=== PATIENT | female | born 1970 | race Caucasian/White ===

== ENCOUNTER 2017-12-04 22:20 | Emergency (ER) | payer MEDICAID, OTHER ==
--- NOTE | 2017-12-04 22:53 | EDPHY ---
H & P Stated Complaint: pt. out of detox today drank again wants to go to [facility] Time Seen by Provider: 12/04/17 22:53 HPI/ROS: HPI CHIEF COMPLAINT: I would like to go to alcohol detox. HISTORY OF PRESENT ILLNESS: 47-year-old female, history of alcoholism daily alcohol use, drinks a 5th of vodka per day, was binge drinking vodka today, presents to the emergency room stating that she wants to go to detox. She resides in [facility]. Her parents drove her here to obtain medications and then go to the [facility]. Here in emergency room the patient has no evidence of withdrawal. She will be given the Librium dose p. O. Orally here and then her parents are willing to take her to the [facility]. Denies any significant complaints at this time. Past Medical History: History of alcoholism, daily alcohol use. Past Surgical History: Denies recent surgery Social History: Daily alcohol use. 5th of vodka per day. Drank today. States last drink was around 3:00 p.m.. Family History: Noncontributory ROS REVIEW OF SYSTEMS: A comprehensive 10 point review of systems is otherwise negative aside from elements mentioned in the history of present illness. Exam Constitutional nontoxic appearing in no acute distress, no evidence withdrawal on exam triage nursing summary reviewed, vital signs reviewed, awake/alert. Eyes normal conjunctivae and sclera, EOMI, PERRLA. HENT normal inspection, atraumatic, moist mucus membranes, no epistaxis, neck supple/ no meningismus, no raccoon eyes. Respiratory clear to auscultation bilaterally, normal breath sounds, no respiratory distress, no wheezing. Cardiovascular rate normal, regular rhythm, no murmur, no edema, distal pulses normal. Gastrointestinal soft, non-tender, no rebound, no guarding, normal bowel sounds, no distension, no pulsatile mass. Genitourinary no CVA tenderness. Musculoskeletal no midline vertebral tenderness, full range of motion, no calf swelling, no tenderness of extremities, no meningismus, good pulses, neurovascularly intact. Skin pink, warm, & dry, no rash, skin atraumatic. Neurologic awake, alert and oriented x 3, AAOx3, moves all 4 extremities equally, motor intact, sensory intact, CN II-XII intact, normal cerebellar, normal vision, normal speech. Psychiatric normal mood/affect. Heme/Lymph/Immune no lymphadenopathy. Differential Diagnosis: Includes but is not limited to in a particular order alcohol withdrawal, alcoholism, need for medications before going to the [facility]. Medical Decision Making: P.o. Librium will be given here 25 mg, Librium take- home pack provided to her parents which will then transport her to the [facility]. Source: Patient - Personal History LMP (Females 10-55): Irregular Current Tetanus/Diphtheria Vaccine: Unsure Current Tetanus Diphtheria and Acellular Pertussis (TDAP): Unsure - Medical/Surgical History Hx Asthma: No Hx Chronic Respiratory Disease: No Hx Diabetes: No Hx Cardiac Disease: No Hx Renal Disease: No Hx Cirrhosis: No Hx Alcoholism: No Hx HIV/AIDS: No Hx Splenectomy or Spleen Trauma: No Other PMH: Depression ptsd ETOH abuse Enlarged Heart & Liver - Social History Smoking Status: Never smoked Constitutional: Initial Vital Signs Temperature (C) 36.5 C 12/04/17 22:26 Heart Rate 91 12/04/17 22:26 Respiratory Rate 16 12/04/17 22:26 Blood Pressure 149/94 H 12/04/17 22:26 O2 Sat (%) 95 12/04/17 22:26 O2 Delivery Mode Room Air Allergies/Adverse Reactions: erythromycin base Allergy (Verified 12/04/17 22:30) Penicillins Allergy (Verified 12/04/17 22:30) Departure - Departure Disposition: Home, Routine, Self-Care Clinical Impression: Alcoholic intoxication Qualifiers: Complication of substance-induced condition: uncomplicated Qualified Code(s): F10.920 - Alcohol use, unspecified with intoxication, uncomplicated Alcohol dependence Qualifiers: Substance use status: uncomplicated Qualified Code(s): F10.20 - Alcohol dependence, uncomplicated Condition: Good Instructions: Alcohol Intoxication (ED), Chlordiazepoxide/Clidinium (By mouth) Additional Instructions: 1. Go directly to the [facility]. 2. Check in at the [facility], provide the Librium to them.
[2017-12-04] MEDS ORDERED: CHLORDIAZEPOXIDE 25MG PREPK#6 BTL TAKEHOME ONE (22:58)
[2017-12-04 23:09] VITALS: BP 116/85
[2017-12-04] MEDS ORDERED: chlordiazePOXIDE 25 MG CAP PO ONE (23:10)
== END 2017-12-04 23:15 | disposition home or self-care (01) ==
DX: F10.230 Alcohol dependence with withdrawal, uncomplicated (principal)

== ENCOUNTER 2017-12-05 11:28 | Emergency (ER) | payer MEDICAID, OTHER ==
--- NOTE | 2017-12-05 12:39 | EDPHY ---
H & P Stated Complaint: from [facility] for detox and siezure medications Time Seen by Provider: 12/05/17 12:57 HPI/ROS: HPI: This is a 47-year-old female who presents with Chief Complaint: from [facility] for detox and seizure medications Location: Body Quality: Shakes Duration: 2-3 days Signs and Symptoms: No fever, no abdominal pain, no vomiting, positive nausea, positive generalized headache, no seizure activity Timing: Acute Severity: Moderate Context: Patient reports she has a history of depression, PTSD, alcohol abuse [facility] requesting more Librium and medications. She reports that she was seen at [facility] on detox approximately 2 weeks ago with intention for inpatient alcohol treatment. Her friend killed himself last week which caused her to"fall off the wagon." [facility] and was told she does stay there till Tuesday but was discharged yesterday. She reports that she had her last Librium pill approximately 4 hr prior to arrival to the emergency room. She reports that this is not helping her symptoms that she continues to have tactile disturbances, anxiety, hand tremors, nausea. She reports that she has not ate or drank anything in 3-4 days. She denies any urinary symptoms, diarrhea, fever, vomiting. Patient reports that she normally takes gabapentin 300 mg daily and Keppra 1000 mg twice daily and has not had the dose and needed to go back to the [facility]. Modifying Factors: Librium Comment: ROS: see HPI Constitutional: No fever, no chills, no weight loss Eyes: No blurred vision Respiratory: No shortness of breath, no cough Cardiovascular: No chest pain Gastrointestinal: No nausea, no vomiting, no diarrhea Genitourinary: No dysuria Extremities: No myalgias Neurologic: No weakness, no numbness Skin: No rashes Hematologic: No bruising, no bleeding MEDICAL/SURGICAL/SOCIAL HISTORY: Medical history: Depression ptsd ETOH abuse Enlarged Heart & Liver Surgical history: Denies Social history: Family history noncontributory. CONSTITUTIONAL: Tidy, cooperative middle-aged white female, overweight, awake and alert, no obvious distress HEENT: Atraumatic and normocephalic, PERRL, EOMI. Nares patent; no rhinorrhea; no nasal mucosal edema. Tympanic membranes clear. Oropharynx clear, no exudate and moist pink mucosa. Airway patent. No lymphadenopathy. No meningismus. Cardiovascular: Normal S1/S2, mild tachycardia, regular rhythm, without murmur rub or gallop. PULMONARY/CHEST: Symmetrical and nontender. Clear to auscultation bilaterally. Good air movement. No accessory muscle usage. ABDOMEN: Soft, nondistended, nontender, no rebound, no guarding, no peritoneal signs, no masses or organomegaly. No CVAT. EXTREMITIES: 2/2 pulses, strength 5/5, no deformities, no clubbing, no cyanosis or edema. NEUROLOGICAL: no focal neuro deficits. GCS 15. SKIN: Warm and dry, no erythema. no rash. Good capillary refill. PSYCH: Good eye contact, no flight of ideas, organized thought process, good insight and judgment, no auditory hallucinations, no visual hallucinations, no suicidal ideation with a plan, no homicidal ideation, no paranoia Source: Patient, RN/MD Exam Limitations: Intoxication - Personal History LMP (Females 10-55): Irregular - Medical/Surgical History Hx Asthma: No Hx Chronic Respiratory Disease: No Hx Diabetes: No Hx Cardiac Disease: No Hx Renal Disease: No Hx Cirrhosis: No Hx Alcoholism: No Hx HIV/AIDS: No Hx Splenectomy or Spleen Trauma: No Other PMH: Depression ptsd ETOH abuse Enlarged Heart & Liver - Social History Smoking Status: Never smoked Constitutional: Initial Vital Signs Temperature (C) 36.6 C 12/05/17 11:34 Heart Rate 102 H 12/05/17 11:34 Respiratory Rate 22 H 12/05/17 11:34 Blood Pressure 103/70 12/05/17 11:34 O2 Sat (%) 99 12/05/17 11:34 O2 Delivery Mode Room Air Allergies/Adverse Reactions: erythromycin base Allergy (Verified 12/05/17 11:32) Penicillins Allergy (Verified 12/05/17 11:32) antibiotic Allergy (Uncoded 12/05/17 11:32) Home Medications: Medication Instructions Recorded Effexor Xr 12/05/17 Gabapentin [Neurontin 300 MG (*)] 300 mg PO HS #7 cap 12/05/17 Keppra 12/05/17 LEVETIRACETAM [Keppra 1000 mg] 1,000 mg PO BID #14 tab 12/05/17 Neurontin 12/05/17 traZODone HCL 12/05/17 traZODone [traZODone 150MG (*)] 150 mg PO HS #7 tab 12/05/17 Medical Decision Making ED Course/Re-evaluation: IV fluids and medications ordered CIWA =10 upon arrival Patient given 2 L normal saline IV Ativan 2 mg and p. O. Librium 75 mg upon arrival Abdomen is soft and nontender. Doubt surgical process. Patient given Keppra 1000 mg, gabapentin 300 mg as she has not had these medications in 24 hr and also prescription for same for 7 day dose along with trazodone for 7 day does. 1450: Reassessed patient. Eating a meal without any difficulty. CIWA =4 She does not meet M1 hold or detainer criteria. 1600: Reassessed patient. Sleeping soundly. Ambulatory without any deficits/ no ataxia. [facility]charge to the [facility] This patient was seen under the supervision of my secondary supervising physician. I evaluated care for this patient independently. Discussed this patient with Dr. Bah. Differential Diagnosis: Differential diagnosis includes but is not limited to alcohol withdrawal, alcohol withdrawal seizures, electrolyte imbalance, seizure activity, gastroenteritis. - Data Points Medications Given: Discontinued Medications Chlordiazepoxide (Librium 25 Mg Prepack#6) 1 btl TAKEHOME EDNOW ONE Stop: 12/05/17 13:05 Last Admin: 12/05/17 13:41 Dose: 1 btl Chlordiazepoxide HCl (Librium) 75 mg PO EDNOW ONE Stop: 12/05/17 13:05 Last Admin: 12/05/17 13:41 Dose: 75 mg Gabapentin (Neurontin) 300 mg PO EDNOW ONE Stop: 12/05/17 13:19 Last Admin: 12/05/17 13:48 Dose: 300 mg Sodium Chloride (Ns) 1,000 mls @ 0 mls/hr IV EDNOW ONE; Wide Open PRN Reason: Protocol Stop: 12/05/17 13:04 Last Admin: 12/05/17 13:40 Dose: 1,000 mls Sodium Chloride (Ns) 1,000 mls @ 0 mls/hr IV EDNOW ONE; Wide Open PRN Reason: Protocol Stop: 12/05/17 13:04 Last Admin: 12/05/17 13:40 Dose: 1,000 mls Levetiracetam (Keppra) 1,000 mg PO EDNOW ONE Stop: 12/05/17 13:18 Last Admin: 12/05/17 13:48 Dose: 1,000 mg Lorazepam (Ativan Injection) 2 mg IVP EDNOW ONE Stop: 12/05/17 13:05 Last Admin: 12/05/17 13:41 Dose: 2 mg Departure - Departure Disposition: Home, Routine, Self-Care Clinical Impression: Has run out of medications Alcohol withdrawal Qualifiers: Complication of substance-induced condition: uncomplicated Qualified Code(s): F10.230 - Alcohol dependence with withdrawal, uncomplicated Condition: Good Instructions: Alcohol Withdrawal (ED) Additional Instructions: Consume a minimum of 8-10 glasses of water or electrolyte fluid replacement drinks that include Gatorade, Powerade, Pedialyte. Eat a bland diet for the next 48 hours and then slowly advance as tolerated. Please take all medications as directed. You have been given a 7 day supply of Keppra, gabapentin, trazodone per request. Please go to the [facility] to complete your alcohol detox. Referrals: [facility] [Outside] - As per Instructions Prescriptions: Gabapentin [Neurontin 300 MG (*)] 300 mg PO HS #7 cap LEVETIRACETAM [Keppra 1000 mg] 1,000 mg PO BID #14 tab traZODone [traZODone 150MG (*)] 150 mg PO HS #7 tab
[2017-12-05] MEDS ORDERED: NS 1,000 ML IV ONE ×2 (13:03)
[2017-12-05] MEDS ORDERED: chlordiazePOXIDE 25 MG CAP PO ONE (13:04)
[2017-12-05] MEDS ORDERED: CHLORDIAZEPOXIDE 25MG PREPK#6 BTL TAKEHOME ONE (13:04)
[2017-12-05] MEDS ORDERED: LORazepam 2 MG/ML INJ IVP ONE (13:04)
[2017-12-05] MEDS ORDERED: levETIRAcetam 500 MG TAB PO ONE (13:17)
[2017-12-05] MEDS ORDERED: GABAPENTIN 300 MG CAP PO ONE (13:18)
[2017-12-05 16:31] VITALS: BP 148/97
== END 2017-12-05 16:41 | disposition home or self-care (01) ==
DX: F10.230 Alcohol dependence with withdrawal, uncomplicated (principal); E86.9 Volume depletion, unspecified; Z76.0 Encounter for issue of repeat prescription
CPT/HCPCS: 96374; J2060